=== PATIENT | female | born 1985 | race Two or more races ===

== ENCOUNTER 2018-11-26 00:45 | Inpatient (IN) | payer MEDICAID ==
[2018-11-26 01:21] LABS: APPEARANCE,URINE SLIGHTLY-CLOUDY; BILIRUBIN,URINE NEGATIVE (NEGATIVE); COLOR,URINE YELLOW; GLUCOSE, URINE NEGATIVE (NEGATIVE); KETONES,URINE NEGATIVE (NEGATIVE); LEUKOCYTE ESTERASE,URINE MODERATE (NEGATIVE); NITRITE,URINE NEGATIVE (NEGATIVE); PROTEIN,URINE NEGATIVE (NEGATIVE); UROBILINOGEN,URINE NEGATIVE mg/dL (<2.0)
[2018-11-26 02:02] LABS: URINE AMPHETAMINES SCREEN NEGATIVE; URINE BARBITURATES SCREEN NEGATIVE; URINE BENZODIAZEPINES SCREEN NEGATIVE; URINE COCAINE SCREEN NEGATIVE; URINE MARIJUANA (THC) SCREEN NEGATIVE; URINE METHADONE SCREEN NEGATIVE; URINE PHENCYCLIDINE SCREEN NEGATIVE
[2018-11-26] MEDS ORDERED: OXYTOCIN 10 UNIT/ML VIAL ONE (03:54)
[2018-11-26] MEDS ORDERED: LIDOCAINE 1% INJ-PF (10 MG/ML) 30 ML SDV ONE (03:54)
[2018-11-26] MEDS ORDERED: MISOPROSTOL 0.2 MG TABLET ONE (03:54)
[2018-11-26] MEDS ORDERED: PENICILLIN G-K 5 MILLION UNIT VIAL ONE ×2 (03:55→06:41)
[2018-11-26] MEDS ORDERED: OXYTOCIN/NORMAL SALINE 20 UNIT/1,000 ML RTUINJ ONE ×2 (03:55→13:54)
[2018-11-26] MEDS ORDERED: PENICILLIN G POTASSIUM 5,000,000 UNIT in DEXTROSE 5%-WATER 100 ML IV ONE (03:59)
[2018-11-26] MEDS ORDERED: RINGERS SOLUTION,LACTATED 1,000 ML IV PRN (03:59)
[2018-11-26 04:37] LABS: ABSOLUTE BASOPHILS # (AUTO) 0.1 10^3/uL (0.0-0.2); ABSOLUTE EOSINOPHILS # (AUTO) 0.2 10^3/uL (0.0-0.6); ABSOLUTE LYMPHOCYTES (AUTO) 1.8 10^3/uL (0.5-4.7); ABSOLUTE MONOCYTES (AUTO) 1.1 10^3/uL (0.1-1.4); BASOPHILS % (AUTO) 0.4 % (0-2); EOSINOPHILS % (AUTO) 1.5 % (0-6); HEMOGLOBIN 10.8 g/dL (12.0-15.5); LYMPHOCYTES % (AUTO) 14.8 % (13-45); MEAN CORPUSCULAR HEMOGLOBIN 30.1 pg (27.0-33.4); MEAN CORPUSCULAR VOLUME 86 fl (80-97); MONOCYTES % (AUTO) 9.3 % (3-13); PLATELET COUNT 159 10^3/uL (150-450); RED CELL DISTRIBUTION WIDTH 13.2 % (11.5-14.0); TOTAL CELLS COUNTED % (AUTO) 100 %; WHITE BLOOD COUNT 12.2 10^3/uL (4.0-10.5)
[2018-11-26] MEDS ORDERED: FENTANYL CITRATE INJ/PF 100 MCG/2 ML AMPUL ONE (05:07)
[2018-11-26] MEDS ORDERED: PHENYLEPHRINE HCL INJ/PF 10 MG/1 ML SDV ONE (05:07)
[2018-11-26] MEDS ORDERED: EPHEDRINE SULFATE INJ 50 MG/1 ML AMPULE ONE (05:07)
[2018-11-26] MEDS ORDERED: BUPIVACAINE HCL 0.25 % INJ/PF (2.5 MG/1 ML) 30 ML VIAL ONE (05:08)
[2018-11-26] MEDS ORDERED: FENTANYL/BUPIVACAINE/NS/PF 300 MCG/150 ML RTUINJ EPI ONE (05:08)
--- NOTE | 2018-11-26 07:46 | Warning Signs in Babies ---
VOD Warning Signs Datetime Report Generated by [facility]: 11/26/2018 07:45 VOD#608 -Warning Signs in Babies: Viewed with Parent(s)/Family (11/26/2018 07:44:Maldonado Portillo RN)
--- NOTE | 2018-11-26 07:54 | Admission Physical ---
Datetime Report Generated by CPN: 11/26/2018 07:54 CURRENT ADMISSION Chief Complaint: Uterine Contractions Indication for Induction: Not Applicable Admit Impression : Term, Intrauterine ; Active Labor Admit Plan: Admit to Unit; Initiate Labor Augmentation Protocol ALLERGIES Medication Allergies: No Medication Allergies: No Known Allergies (11/26/2018) Latex: No Latex Allergies Food Allergies: none Environmental Allergies: none OBSTETRICAL HISTORY EDC: 11/29/2018 00:00 : 5 Para: 2 Term: 2 : 0 SAB: 0 IAB: 0 Ectopic: 0 Livin Cesareans: 0 VBACs: 0 Multiple Births: 0 Gestational Diabetes: Yes Rh Sensitization: No Incompetent Cervix: No YOSI: No Infertility: No ART Treatment: No Uterine Anomaly: No IUGR: No Hx Previous C/S: No Macrosomia: No Hx Loss/Stillborn: No PIH: No Hx : No Placenta Previa/Abruption: No Depression/PP Depression: No PTL/PROM: No Post Hemorrhage: No Current Procedures: Ultrasound; NST Obstetrical History Comments: G1- 2009 6week SAB G2- 2011 4 week SAB G3- 2013 at 40 weeks 7lbs 5oz female G4- 2013 at 39 weeks 8lbs 14oz male, GDM G5- current, GDM (diet controlled) SEE RECORDS Alcohol: No Marijuana : No Cocaine: No Other Illicit Drugs: No Cigarettes: Current Everyday Smoker. [id number] Cigarette Frequency: < 5 per day Advised to Stop: Yes MEDICAL HISTORY Diabetes: Yes Diabetes Type: Gestational Diabetes Blood Transfusion: No Pulmonary Disease (Asthma, TB): No Breast Disease: No Hypertension: No Siene Maker Surgery: No Heart Disease: No Hosp/Surgery: No Autoimmune Disorder: No Anesthetic Complications: No Kidney Disease: Yes Abnormal Pap Smear: No Neuro/Epilepsy: No Psychiatric Disorders: No Other Medical Diseases: No Hepatitis/Liver Disease: No Significant Family History: No Varicosities/Phlebitis: No Trauma/Violence : No Thyroid Dysfunction: No Medical History Comments: pt has had 2 UTIs during this pregnancv INFECTIOUS HISTORY Gonorrhea: No Genital Herpes: No Chlamydia: No Tuberculosis: No Syphilis: No Hepatitis: No HIV/AIDS Exposure: No Rash or Viral Illness: No HPV: No PHYSICAL EXAM General: Normal HEENT: Normal Neurologic: Normal Thyroid: Normal Heart: Normal Lungs: Normal Breast: Normal Back: Normal Abdomen: Normal Genitourinary Exam: Normal Extremities: Normal DTRs: Normal Pelvic Type: Adequate Vital Signs: Reviewed VAGINAL EXAM Dilatation: 5 Effacement: 80 Station: -2 MEMBRANES Pooling: Negative Membranes: Intact FETUS A EGA: 39.4 Monitoring: External US FHR- Baseline: 130 Variability: Moderate 6-25bpm Accelerations: 15X15 Decelerations: None FHR Category: Category I Estimated Weight (gm): 3400 Presentation: Vertex PLANS FOR LABOR AND DELIVERY Labor and Delivery: None Pain Management: Natural Feeding Preference: Breast Benefit of Breast Feed Discussed: Yes Circumcision: N/A INFORMED CONSENT Signature: with User ID: [email or web address]
[2018-11-26] MEDS: PENICILLIN G POTASSIUM 2,500,000 UNIT in DEXTROSE 5%-WATER 50 ML IV SCH ×3 (08:03→16:18)
[2018-11-26] MEDS ORDERED: PROMETHAZINE HCL INJ 25 MG/1 ML VIAL IV PRN (10:31)
[2018-11-26] MEDS ORDERED: PSEUDOEPHEDRINE HCL 30 MG TABLET PO PRN (10:31)
[2018-11-26] MEDS ORDERED: DIPH/PERTUSS(ACELL)/TETANUS VAC/PF 0.5 ML SYR (>=10YO) IM PRN (10:31)
[2018-11-26] MEDS ORDERED: PROMETHAZINE HCL 25 MG SUPP.RECT PR PRN (10:31)
[2018-11-26] MEDS ORDERED: DIBUCAINE 1% OINTMENT 56 GM TP PRN (10:31)
[2018-11-26] MEDS ORDERED: BENZOCAINE/MENTHOL AEROSOL SPRAY 56 ML TOP PRN (10:31)
[2018-11-26] MEDS ORDERED: MISOPROSTOL 0.2 MG TABLET PR ONE (10:31)
[2018-11-26] MEDS ORDERED: DIPHENHYDRAMINE HCL 25 MG CAPSULE PO PRN (10:31)
[2018-11-26] MEDS ORDERED: OXYTOCIN/NORMAL SALINE 20 UNIT/1,000 ML RTUINJ IV PRN (10:31)
[2018-11-26] MEDS ORDERED: ACETAMINOPHEN 325 MG TABLET PO PRN (10:31)
[2018-11-26] MEDS ORDERED: MAGNESIUM HYDROXIDE SUSP 30 ML UDCUP PO PRN (10:31)
[2018-11-26] MEDS ORDERED: MEASLES,MUMPS&RUBELLA VACC/PF 0.5 ML VIAL SUBCUT PRN (10:31)
[2018-11-26] MEDS ORDERED: GLYCERIN/WITCH HAZEL LEAF 1 EACH MED..WIPE TP PRN (10:31)
[2018-11-26] MEDS ORDERED: PROMETHAZINE HCL 25 MG TABLET PO PRN (10:31)
[2018-11-26] MEDS ORDERED: NA PHOS,M-B/NA PHOS,DI-BA (ADULT) 133 ML ENEMA PR PRN (10:31)
[2018-11-26] MEDS ORDERED: MORPHINE SULFATE 10 MG/ML INJ ONE (15:42)
[2018-11-26] MEDS ORDERED: METHYLERGONOVINE MALEATE 0.2 MG TABLET ONE ×2 (15:51→21:26)
[2018-11-26] MEDS: METHYLERGONOVINE MALEATE 0.2 MG TABLET PO SCH ×3 (16:01→23:45)
[2018-11-26] MEDS: FERROUS SULFATE 325 MG TABLET PO SCH (17:51)
[2018-11-26] MEDS: IBUPROFEN 800 MG TABLET PO SCH (17:51)
[2018-11-26] MEDS: DOCUSATE SODIUM 100 MG CAPSULE PO SCH (17:51)
[2018-11-26] MEDS: FAMOTIDINE 20 MG TABLET PO SCH (21:30)
[2018-11-27] MEDS: IBUPROFEN 800 MG TABLET PO SCH ×3 (01:59→18:12)
[2018-11-27] MEDS: METHYLERGONOVINE MALEATE 0.2 MG TABLET PO SCH ×3 (04:40→18:58)
[2018-11-27 06:58] LABS: HEMATOCRIT 26.5 % (36.0-47.0); HEMOGLOBIN 9.2 g/dL (12.0-15.5); MEAN CORPUSCULAR HEMOGLOBIN 30.2 pg (27.0-33.4); MEAN CORPUSCULAR HGB CONC 34.9 g/dL (32.0-36.0); MEAN CORPUSCULAR VOLUME 87 fl (80-97); PLATELET COUNT 137 10^3/uL (150-450); RED BLOOD COUNT 3.06 10^6/uL (3.72-5.28); RED CELL DISTRIBUTION WIDTH 13.5 % (11.5-14.0); WHITE BLOOD COUNT 11.2 10^3/uL (4.0-10.5)
[2018-11-27] MEDS ORDERED: METHYLERGONOVINE MALEATE 0.2 MG TABLET ONE (08:15)
[2018-11-27] MEDS: DOCUSATE SODIUM 100 MG CAPSULE PO SCH ×2 (09:25→18:12)
[2018-11-27] MEDS: SENNOSIDES/DOCUSATE 8.6-50 MG 1 EACH TABLET PO SCH (09:25)
[2018-11-27] MEDS: FERROUS SULFATE 325 MG TABLET PO SCH ×2 (09:25→18:12)
[2018-11-27] MEDS: FAMOTIDINE 20 MG TABLET PO SCH ×2 (09:25→22:23)
[2018-11-27] MEDS: PRENATAL VITAMIN W DHA CAPSULE PO SCH (09:25)
--- NOTE | 2018-11-27 11:05 | PDOC PROGRESS REPORT ---
Subjective-OB Progress Note for:: 11/27/18 Subjective: Doing well, no c/o, holding baby and on phone, Physical Exam (OB) Vital Signs: Temp Pulse Resp BP Pulse Ox 97.6 F 78 18 111/69 98 11/27/18 07:54 11/27/18 07:54 11/27/18 07:54 11/27/18 07:54 11/27/18 07:54 Intake & Output 11/26/18 11/27/18 11/28/18 06:59 06:59 06:59 Intake Total 240 Balance 240 Weight 67 kg - Lochia Lochia Amount: Scant < 10 ml Lochia Color: Rubra/Red - Abdomen Description: Firm, Round Hernia Present: No Fundal Description: Firm, Midline Fundal Height: u/u - u/2 Objective-Diagnostic Laboratory: 11/27/18 06:06 11/27/18 06:06 WBC 11.2 H RBC 3.06 L Hgb 9.2 L Hct 26.5 L MCV 87 MCH 30.2 MCHC 34.9 RDW 13.5 Plt Count 137 L Assessment and Plan(PN) - Assessment and Plan (1) hemorrhage Qualifiers: hemorrhage type: unspecified Qualified Code(s): O72.1 - Other immediate hemorrhage Is this a current diagnosis for this admission?: Yes (2) Anemia complicating , third trimester Is this a current diagnosis for this admission?: Yes (3) Delivery normal Is this a current diagnosis for this admission?: Yes - Time Spent with Patient Time with patient: Less than 15 minutes Medications reviewed and adjusted accordingly: Yes - Disposition Anticipated Discharge: Home Within: within 24 hours
[2018-11-28] MEDS: IBUPROFEN 800 MG TABLET PO SCH ×2 (01:21→10:14)
[2018-11-28] MEDS: PRENATAL VITAMIN W DHA CAPSULE PO SCH (10:13)
[2018-11-28] MEDS: DOCUSATE SODIUM 100 MG CAPSULE PO SCH (10:14)
[2018-11-28] MEDS: SENNOSIDES/DOCUSATE 8.6-50 MG 1 EACH TABLET PO SCH (10:14)
[2018-11-28] MEDS: FAMOTIDINE 20 MG TABLET PO SCH (10:14)
[2018-11-28] MEDS: FERROUS SULFATE 325 MG TABLET PO SCH (10:14)
--- NOTE | 2018-11-28 10:39 | PDOC DISCHARGE SUMMARY ---
Impression - Admit/DC Date/PCP Admission Date/Primary Care Provider: 11/26/18 03:52 Discharge Date: 11/28/18 - PP Day #2, doing well, non complaints, , O+, rubella Immune - Discharge Diagnosis (1) Anemia complicating , third trimester Is this a current diagnosis for this admission?: Yes (2) Delivery normal Is this a current diagnosis for this admission?: Yes (3) hemorrhage Is this a current diagnosis for this admission?: Yes - Additional Information Resuscitation Status: Full Code Discharge Diet: As Tolerated, Regular Discharge Activity: Activity As Tolerated, No Lifting Over 10 Pounds, Pelvic R est Home Medications: No Home Medications 11/26/18 HPI Reason(s) for Admission: Onset of Labor Procedures: Ultrasound Intrapartum Procedure(s): Spontaneous Vaginal Delivery Hospital Course Hospital Course: Hx of GDM this Results Laboratory Results: WBC 11.2 10^3/uL (4.0-10.5) H 11/27/18 06:06 RBC 3.06 10^6/uL (3.72-5.28) L 11/27/18 06:06 Hgb 9.2 g/dL (12.0-15.5) L 11/27/18 06:06 Hct 26.5 % (36.0-47.0) L 11/27/18 06:06 MCV 87 fl (80-97) 11/27/18 06:06 MCH 30.2 pg (27.0-33.4) 11/27/18 06:06 MCHC 34.9 g/dL (32.0-36.0) 11/27/18 06:06 RDW 13.5 % (11.5-14.0) 11/27/18 06:06 Plt Count 137 10^3/uL (150-450) L 11/27/18 06:06 Lymph % (Auto) 14.8 % (13-45) 11/26/18 04:25 [place] % (Auto) 9.3 % (3-13) 11/26/18 04:25 Eos % (Auto) 1.5 % (0-6) 11/26/18 04:25 Baso % (Auto) 0.4 % (0-2) 11/26/18 04:25 Absolute Neuts (auto) 9.0 10^3/uL (1.7-8.2) H 11/26/18 04:25 Absolute Lymphs (auto) 1.8 10^3/uL (0.5-4.7) 11/26/18 04:25 Absolute Monos (auto) 1.1 10^3/uL (0.1-1.4) 11/26/18 04:25 Absolute Eos (auto) 0.2 10^3/uL (0.0-0.6) 11/26/18 04:25 Absolute Basos (auto) 0.1 10^3/uL (0.0-0.2) 11/26/18 04:25 Seg Neutrophils % 74.0 % (42-78) 11/26/18 04:25 Urine Color YELLOW 11/26/18 00:55 Urine Appearance SLIGHTLY-CLOUDY 11/26/18 00:55 Urine pH 6.0 (5.0-9.0) 11/26/18 00:55 Ur Specific [place] 1.010 11/26/18 00:55 Urine Protein NEGATIVE mg/dL (NEGATIVE) 11/26/18 00:55 Urine Glucose (UA) NEGATIVE mg/dL (NEGATIVE) 11/26/18 00:55 Urine Ketones NEGATIVE mg/dL (NEGATIVE) 11/26/18 00:55 Urine Blood SMALL (NEGATIVE) H 11/26/18 00:55 Urine Nitrite NEGATIVE (NEGATIVE) 11/26/18 00:55 Urine Bilirubin NEGATIVE (NEGATIVE) 11/26/18 00:55 Urine Urobilinogen NEGATIVE mg/dL (<2.0) 11/26/18 00:55 Ur Leukocyte Esterase MODERATE (NEGATIVE) H 11/26/18 00:55 Urine Ascorbic Acid NEGATIVE (NEGATIVE) 11/26/18 00:55 Membranes Rupture NEGATIVE (NEGATIVE) 11/26/18 01:02 Urine Opiates Screen NEGATIVE 11/26/18 00:55 Urine Methadone Screen NEGATIVE 11/26/18 00:55 Ur Barbiturates Screen NEGATIVE 11/26/18 00:55 Ur Phencyclidine Scrn NEGATIVE 11/26/18 00:55 Ur Amphetamines Screen NEGATIVE 11/26/18 00:55 U Benzodiazepines Scrn NEGATIVE 11/26/18 00:55 Urine Cocaine Screen NEGATIVE 11/26/18 00:55 U Marijuana (THC) Screen NEGATIVE 11/26/18 00:55 RPR NONREACTIVE (NONREACTIVE) 11/26/18 04:25 Blood Type O POSITIVE 11/26/18 04:25 Antibody Screen NEGATIVE 11/26/18 04:25 Plan Health Concerns: none
[2018-11-28 11:04] VITALS: BP 111/69
--- NOTE | 2018-12-03 07:54 | Delivery Summary ---
Del Sum A-C Datetime Report Generated by CPN: 12/03/2018 07:53 DELIVERY PERSONNEL DELIVERY PERSONNEL: [id number] Delivery Doctor:: Isa Ennis CNM Labor and Delivery Nurse:: Maldonado Portillo RNhotel or motel room service supervisor Nurse:: Marissa Mendez RN Load Haul Dump Operator/FINANCIAL SALES ASSOCIATE: Lillie Pozo CST Additional Personnel: : Soumya Balderas RN MATERNAL INFORMATION Delivery Anesthesia: Epidural Medications After Delivery: Pitocin Bolus-Please Comment; Pitocin Drip 20 Units/1000ml NSS; Cytotec 1000mcg Per Rectum/Vagina Delivery QBL: 300 Delivery QBL Comment: 300ml Maternal Complications: None Provider Comments: pt progressed to c/c/2 with urge to push. Called into room, pt began pushing and quickly delivered a viable baby girl with vigorous respiratory effort and cry with tactile stimulation. Baby placed on maternal abdomen, cord allowed to stop pulsating then clamped x2 and cut by FOB (3vc noted, cord blood collected, terminal meconium noted). Placenta delivered spontaneously intact with trailing membranes. fundus firm at U-1 with moderate bleeding and several clots out. Vaginal sweep performed and minimal bleeding followed. Vaginal and perineal inspection revealed no lacerations. Mother and baby remain skin to skin and bonding at this time. 1000mcg cytotec placed rectally for prophylaxis LABOR SUMMARY EDC: 11/29/2018 00:00 No. Babies in Womb: 1 Attempted: No Labor Anesthesia: Epidural LABOR INFORMATION Reason for Induction: Not Applicable Complete Dilatation: 11/26/2018 09:54 Other Ripening Agents: 125 ml/hr Oxytocin: Augmentation Group B Beta Strep: positive Antibiotics # of Doses: 2 Antibiotics Time of Last Dose: 0803 Name of Antibiotic Given: PENICILLIN G Steroids Given: None Reason Steroids Not Administered: Not Applicable MEMBRANES Membranes Rupture Method: Spontaneous Rupture of Membranes: 11/26/2018 07:48 Length of Rupture (hr): 2.27 Amniotic Fluid Color: Clear Amniotic Fluid Amount: Small Amniotic Fluid Odor: None STAGES OF LABOR Stage 2 hr: 0 Stage 2 min: 10 Stage 3 hr: 0 Stage 3 min: 7 VAGINAL DELIVERY Episiotomy: None Laceration #1: None Laceration Extension #1: N/A Other Laceration: n/a Laceration Repair: Not Applicable Sponge Count Correct: N/A; Vaginal Sweep Performed Sharps Count Correct: N/A BABY A INFORMATION Delivery Date/Time: 11/26/2018 10:04 Method of Delivery: Vaginal Born in Route : No : N/A Forceps: N/A Vacuum Extraction: N/A Shoulder Dystocia : No PRESENTATION/POSITION BABY A Presentation: Cephalic Cephalic Presentation: Vertex Vertex Position: Left Occipital Anterior Breech Presentation: N/A PLACENTA INFORMATION BABY A Placenta Delivery Time : 11/26/2018 10:11 Placenta Method of Delivery: Spontaneous Placenta Status: Delivered SCORES BABY A Heart Rate 1 min: >100 bpm Resp Effort 1 min: Slow, Irregular Reflex Irritability 1 min: Cough or Sneeze or Pulls Away Muscle Tone 1 min: Active Motion Color 1 min: Body [place], Extremities Blue Resuscitation Effort 1 min: Tactile Stimulation SCORE 1 MIN: 8 Heart Rate 5 min: >100 bpm Resp Effort 5 min: Good Cry Reflex Irritability 5 min: Cough or Sneeze or Pulls Away Muscle Tone 5 min: Active Motion Color 5 min: Body [place], Extremities Blue Resuscitation Effort 5 min: Tactile Stimulation SCORE 5 MIN: 9 INFANT INFORMATION BABY A Gestational Age at Delivery: 39.4 Gestational Status: Full Term- 39- 40.6 Weeks Infant Outcome : Liveborn Infant Condition : Stable Infant Sex: Female IDENTIFICATION BABY A Infant Verification Date/Time: 11/26/2018 10:51 ID Band Number: [id number] Mother's Name Verified: Yes Infant RN Verifying : JNiebuhr,RN Additional Verifying Personnel: Adeel,MARY WEIGHT/LENGTH BABY A Birthweight (gm): 4039 Infant Weight (lb): 8 Weight (oz): 14 Length (in): 21.00 Length (cm): 53.34 CORD INFORMATION BABY A Nuchal Cord : N/A Cord Blood Taken: Yes-For Eval (Mom's Blood Type - or O+) Infant Suction: None ASSESSMENT BABY A Complications: None Physical Findings at Delivery: Within Normal Limits Respirations: Appears Normal Skin to Skin: Yes Skin to Skin Time (min): 60 Dispensary Clerk/ALS Called : No Infant Care By: Erum PORTILLO RN Transferred To: Remains with Mother BABY B INFORMATION : N/A SIGNATURES Assignment: Ketty Alfred MD Signature: with User ID: [email or web address] : with User ID: [email or web address]
--- NOTE | 2018-12-03 07:54 | Delivery Summary ---
Del Sum A-C Datetime Report Generated by CPN: 12/03/2018 07:53 DELIVERY PERSONNEL DELIVERY PERSONNEL: [id number] Delivery Doctor:: Isa Ennis CNM Labor and Delivery Nurse:: Maldonado Portillo RNturf keeper Nurse:: Marissa Mendez RN District Manager Primary Care Sales/BUSINESS PLANNING ANALYST: Lillie Pozo CST Additional Personnel: : Soumya Balderas RN MATERNAL INFORMATION Delivery Anesthesia: Epidural Medications After Delivery: Pitocin Bolus-Please Comment; Pitocin Drip 20 Units/1000ml NSS; Cytotec 1000mcg Per Rectum/Vagina Delivery QBL: 300 Delivery QBL Comment: 300ml Maternal Complications: None Provider Comments: pt progressed to c/c/2 with urge to push. Called into room, pt began pushing and quickly delivered a viable baby girl with vigorous respiratory effort and cry with tactile stimulation. Baby placed on maternal abdomen, cord allowed to stop pulsating then clamped x2 and cut by FOB (3vc noted, cord blood collected, terminal meconium noted). Placenta delivered spontaneously intact with trailing membranes. fundus firm at U-1 with moderate bleeding and several clots out. Vaginal sweep performed and minimal bleeding followed. Vaginal and perineal inspection revealed no lacerations. Mother and baby remain skin to skin and bonding at this time. 1000mcg cytotec placed rectally for prophylaxis LABOR SUMMARY EDC: 11/29/2018 00:00 No. Babies in Womb: 1 Attempted: No Labor Anesthesia: Epidural LABOR INFORMATION Reason for Induction: Not Applicable Complete Dilatation: 11/26/2018 09:54 Other Ripening Agents: 125 ml/hr Oxytocin: Augmentation Group B Beta Strep: positive Antibiotics # of Doses: 2 Antibiotics Time of Last Dose: 0803 Name of Antibiotic Given: PENICILLIN G Steroids Given: None Reason Steroids Not Administered: Not Applicable MEMBRANES Membranes Rupture Method: Spontaneous Rupture of Membranes: 11/26/2018 07:48 Length of Rupture (hr): 2.27 Amniotic Fluid Color: Clear Amniotic Fluid Amount: Small Amniotic Fluid Odor: None STAGES OF LABOR Stage 2 hr: 0 Stage 2 min: 10 Stage 3 hr: 0 Stage 3 min: 7 VAGINAL DELIVERY Episiotomy: None Laceration #1: None Laceration Extension #1: N/A Other Laceration: n/a Laceration Repair: Not Applicable Sponge Count Correct: N/A; Vaginal Sweep Performed Sharps Count Correct: N/A BABY A INFORMATION Delivery Date/Time: 11/26/2018 10:04 Method of Delivery: Vaginal Born in Route : No : N/A Forceps: N/A Vacuum Extraction: N/A Shoulder Dystocia : No PRESENTATION/POSITION BABY A Presentation: Cephalic Cephalic Presentation: Vertex Vertex Position: Left Occipital Anterior Breech Presentation: N/A PLACENTA INFORMATION BABY A Placenta Delivery Time : 11/26/2018 10:11 Placenta Method of Delivery: Spontaneous Placenta Status: Delivered SCORES BABY A Heart Rate 1 min: >100 bpm Resp Effort 1 min: Slow, Irregular Reflex Irritability 1 min: Cough or Sneeze or Pulls Away Muscle Tone 1 min: Active Motion Color 1 min: Body [place], Extremities Blue Resuscitation Effort 1 min: Tactile Stimulation SCORE 1 MIN: 8 Heart Rate 5 min: >100 bpm Resp Effort 5 min: Good Cry Reflex Irritability 5 min: Cough or Sneeze or Pulls Away Muscle Tone 5 min: Active Motion Color 5 min: Body [place], Extremities Blue Resuscitation Effort 5 min: Tactile Stimulation SCORE 5 MIN: 9 INFANT INFORMATION BABY A Gestational Age at Delivery: 39.4 Gestational Status: Full Term- 39- 40.6 Weeks Infant Outcome : Liveborn Infant Condition : Stable Infant Sex: Female IDENTIFICATION BABY A Infant Verification Date/Time: 11/26/2018 10:51 ID Band Number: [id number] Mother's Name Verified: Yes Infant RN Verifying : JNiebuhr,RN Additional Verifying Personnel: Adeel,MARY WEIGHT/LENGTH BABY A Birthweight (gm): 4039 Infant Weight (lb): 8 Weight (oz): 14 Length (in): 21.00 Length (cm): 53.34 CORD INFORMATION BABY A Nuchal Cord : N/A Cord Blood Taken: Yes-For Eval (Mom's Blood Type - or O+) Infant Suction: None ASSESSMENT BABY A Complications: None Physical Findings at Delivery: Within Normal Limits Respirations: Appears Normal Skin to Skin: Yes Skin to Skin Time (min): 60 Configuration Manager/ALS Called : No Infant Care By: Erum PORTILLO RN Transferred To: Remains with Mother BABY B INFORMATION : N/A SIGNATURES Assignment: Ketty Alfred MD Signature: with User ID: [email or web address] : with User ID: [email or web address]
== END 2018-11-28 13:41 | disposition home or self-care (01) | DRG 807 ==
LOC: LC 00:45 → LR 03:52 → 2N 17:43
PROVIDERS: ADMIT Obstetrics & Gynecology; ATTEND Obstetrics & Gynecology
PROC: 10E0XZZ Delivery of Products of Conception, External Approach (ICD-10-PCS; principal; 2018-11-26)
PROC: 3E0234Z Introduction of Serum, Toxoid and Vaccine into Muscle, Percutaneous Approach (ICD-10-PCS; 2018-11-28)
DX: O99.824 Streptococcus B carrier state complicating childbirth (principal); Z37.0 Single live birth; O24.420 Gestational diabetes mellitus in childbirth, diet controlled; O72.1 Other immediate postpartum hemorrhage; O99.02 Anemia complicating childbirth; D64.9 Anemia, unspecified; O99.334 Smoking (tobacco) complicating childbirth; F17.210 Nicotine dependence, cigarettes, uncomplicated; Z23 Encounter for immunization; Z3A.39 39 weeks gestation of pregnancy
CPT/HCPCS: 36415; 80307; 81005; 84112; 85025; 85027; 86592; 86850; 86900; 86901; 90715; J2270; J2370; J2540; J2590; J3010; J3490; J7060

== ENCOUNTER 2019-06-13 11:30 | Emergency (ER) | payer SELFPAY ==
--- NOTE | 2019-06-13 11:48 | ER Document Report ---
ED GI/ - General Chief Complaint: Abdominal Pain Stated Complaint: RIGHT SIDE PAIN Time Seen by Provider: 06/13/19 11:43 Mode of Arrival: Ambulatory Information source: Patient Notes: 34-year-old female presented to ED for complaint of right flank/upper abdominal pain. [place] around and she fell a few times. She states that her right flank was hurting then and she thought it was getting better then this morning she woke up and could not get up and move around. She states her last menstrual period was from the . She states she does smoke 4 to 5 cigarettes a day drinks about once a month no drugs. 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 She states she does not have any past medical or surgical history and her last tetanus immunization was about 2014. TRAVEL OUTSIDE OF THE [place] IN LAST 30 DAYS: No - HPI Patient complains to provider of: Abdominal pain - Right upper, Flank pain - Right Onset: Other - 5 days Timing/Duration: Intermittent, Worse Quality of pain: Sharp Severity at maximum: Severe Severity in ED: Severe Pain Level: 5 Location: RUQ, Right flank Vaginal bleeding (Compared to normal period): None LMP: June 01 Exacerbated by: Movement, Walking, Deep breathing Relieved by: Denies Similar symptoms previously: Yes Recently seen / treated by doctor: No - Related Data Allergies/Adverse Reactions: No Known Allergies Allergy (Verified 11/26/18 04:30) Past Medical History - General Information source: Patient - Social History Smoking Status: Current Every Day Smoker Cigarette use (# per day): Yes - 4-5 cigarettes a day Smoking Education Provided: Yes - 4 minutes Frequency of alcohol use: Occasional Drug Abuse: None Occupation: [employer] Lives with: Spouse/Significant other Family History: Reviewed & Not Pertinent Patient has suicidal ideation: No Patient has homicidal ideation: No - Medical History Medical History: Negative - Past Medical History Cardiac Medical History: Reports: None Pulmonary Medical History: Reports: None EENT Medical History: Reports: None Neurological Medical History: Reports: None Endocrine Medical History: Reports: None Renal/ Medical History: Reports: None Malignancy Medical History: Reports: None GI Medical History: Reports: None Musculoskeletal Medical History: Reports None Skin Medical History: Reports None Psychiatric Medical History: Reports: None Traumatic Medical History: Reports: None Infectious Medical History: Reports: None Surgical Hx: Negative Past Surgical History: Reports: None - Immunizations Immunizations up to date: Yes Hx Diphtheria, Pertussis, Tetanus Vaccination: Yes - 2014 Review of Systems - Review of Systems Constitutional: No symptoms reported EENT: No symptoms reported Cardiovascular: No symptoms reported Respiratory: No symptoms reported Gastrointestinal: Abdominal pain Genitourinary: Flank pain - Right flank Female Genitourinary: No symptoms reported Musculoskeletal: No symptoms reported Skin: No symptoms reported Hematologic/Lymphatic: No symptoms reported Neurological/Psychological: No symptoms reported Physical Exam - Vital signs Vitals: Temp Pulse Resp BP Pulse Ox 97.5 F 76 18 132/57 H 99 06/13/19 11:32 06/13/19 11:32 06/13/19 11:32 06/13/19 11:32 06/13/19 11:32 Interpretation: Normal - General General appearance: Appears well, Alert - HEENT Head: Normocephalic, Atraumatic Eyes: Normal Pupils: PERRL - Respiratory Respiratory status: No respiratory distress Chest status: Nontender Breath sounds: Normal Chest palpation: Normal - Cardiovascular Rhythm: Regular Heart sounds: Normal auscultation Murmur: No - Abdominal Inspection: Normal Distension: No distension Bowel sounds: Normal Tenderness: Tender - Right upper quadrant Organomegaly: No organomegaly - Back Back: Normal, CVA tenderness - Right flank - Extremities General upper extremity: Normal inspection, Nontender, Normal color, Normal ROM, Normal temperature General lower extremity: Normal inspection, Nontender, Normal color, Normal ROM, Normal temperature, Normal weight bearing. No: Surendra's sign - Neurological Neuro grossly intact: Yes Cognition: Normal Orientation: AAOx4 [place] Coma Scale Eye Opening: Spontaneous [place] Coma Scale Verbal: Oriented [place] Coma Scale Motor: Obeys Commands [place] Coma Scale Total: 15 Speech: Normal Motor strength normal: LUE, RUE, LLE, RLE Sensory: Normal - Psychological Associated symptoms: Normal affect, Normal mood - Skin Skin Temperature: Warm Skin Moisture: Dry Skin Color: Normal Course - Re-evaluation Re-evalutation: 06/13/19 18:09 Discussed ultrasound and CAT scan with patient. There is no acute processes on the ultrasound or the CAT scan. She did have a UTI. I did discuss all lab work with her and gave her written report of the CT ultrasound and lab work. She was treated with Rocephin in the emergency room for her UTI and discharged home with a prescription for Keflex. She has been informed that the urine will be sent for culture if anything grows that is not covered by the Keflex she will be called in a prescription called to her pharmacy of choice. Patient verbalized understanding and agreement treatment plan. Patient was given a prescription for muscle relaxants Flexeril as she stated she had fallen several days ago before this pain started. - Vital Signs Vital signs: Temp Pulse Resp BP Pulse Ox 97.8 F 70 20 116/70 100 06/13/19 15:49 06/13/19 15:49 06/13/19 15:49 06/13/19 15:49 06/13/19 15:49 - Laboratory Result Diagrams: 06/13/19 12:00 06/13/19 12:00 Laboratory results interpreted by me: 06/13/19 06/13/19 12:00 13:27 Hct 35.9 L Urine Blood MODERATE H Urine Nitrite (Reflex) POSITIVE H Leukocyte Esterase Rfl TRACE H - Diagnostic Test Radiology reviewed: Image reviewed, Reports reviewed Discharge - Discharge Clinical Impression: Right flank pain UTI (urinary tract infection) Qualifiers: Urinary tract infection type: site unspecified Hematuria presence: with adrianne turia Qualified Code(s): N39.0 - Urinary tract infection, site not specified Fall Qualifiers: Encounter type: initial encounter Qualified Code(s): W19.XXXA - Unspecified fall, initial encounter Condition: Stable Disposition: HOME, SELF-CARE Additional Instructions: CONTUSION: Your injury has resulted in a contusion -- a crushing of the deep tissues. No injury to important structures was detected during the physician's exam. Contusions vary in the amount of pain they cause, and in the length of time required for healing. Typically, the area will become bruised, and will remain painful to touch for two or three weeks. However, most patients are back to working and playing within a few days. After the initial period of rest and cold-packs, your symptoms (together with the doctor's recommendations) will determine how rapidly you can get back to full activity. Usually this means "do what feels okay, but don't do things that hurt." If re-examination was recommended, it's important to follow up as instructed. Call the doctor or return any time if pain increases, if swelling becomes severe, if you develop numbness or weakness in an injured extremity, or if any other alarming symptoms occur. Flank Pain We weren't able to prove an exact cause for your flank pain. Pain in the flank can be caused by a muscle strain or spasm. Sometimes a kidney stone causes pain, but can't be found on our tests. Infection in the kidney should be evident on a urine test. Early shingles can occasionally cause flank pain, without the rash that proves the diagnosis. On rare occasions, disease of the pancreas, aorta, spleen, or colon can create pain in the flank. At this time, there's no evidence of a dangerous condition, and it seems safe for you to be at home. If the pain goes away and does not come back, no further testing will be needed. If pain persists, or becomes more severe, we may need to repeat some tests or order additional new testing. Blood in the urine, urgency to urinate frequently, and pain that radiates to the groin can indicate a kidney stone. Fever may mean that the pain is due to infection, either of the kidney or the colon (diverticulitis). If your pain is early shingles, you should develop an eruption of blisters in the painful area within a few days. Call the doctor or return if you have pain that is spreading or becoming more severe, pain that does not resolve with time, fever, or any other new symptoms. URINARY TRACT INFECTION: Your evaluation indicates that you have a urinary tract infection. This is due to germs growing in the bladder. This is a common problem. This infection usually responds quickly to antibiotics. Your antibiotic should be taken exactly as prescribed. Drink plenty of fluids -- three to four quarts a day. Occasionally, a bladder anesthetic will be prescribed to help stop the feeling of urgency until the antibiotic has a chance to clear the infection. This may cause your urine to be dark orange. Certain urine infections require a culture. If the doctor obtained a cu lture, the results will be back in two days. You should call to see if a change in treatment is needed. A repeat urinalysis after you finish treatment is often recommended. The physician will let you know if further testing is required. Call the doctor if you develop fever, chills, flank pain, inability to urinate, or blood in the urine. CEPHALEXIN: The antibiotic you've been prescribed is a member of the cephalosporin class. This type of antibiotic covers a wide variety of infections, including those of the skin, lungs, and urinary tract. It's useful for staph infections. This antibiotic is slightly similar to the penicillin family. In rare cases, a person who is allergic to penicillin will also be allergic to this medication. If you have had a severe allergic reaction to penicillin, and have not taken this antibiotic since that time, notify your doctor. Antibiotics which cover many germs ("broad spectrum" antibiotics) are more likely to cause diarrhea or "yeast" infections. Women prone to vaginal yeast problems may suffer an attack after taking this antibiotic. In infants, oral thrush (white spots "stuck" on the cheek) or yeast diaper rash may result. See your doctor if these problems occur. Call at once if you develop itching, hives, shortness of breath, or lightheadedness. Rocephin You have been given an injection of an antibiotic called Rocephin (ceftriaxone). Sometimes the injection must be combined with antibiotic pills. For some infections, such as an uncomplicated ear infection, Rocephin provides all the antibiotic that's needed. The antibiotic will be in your body for about two days. For serious infec tions, we usually repeat doses of Rocephin daily. Side effects are very unusual following a shot. Women may develop vaginal yeast infections, and babies can get yeast (thrush) in the mouth following the use of antibiotics. Contact your physician if you have symptoms with this medication. Allergy to this antibiotic can result in hives, wheezing, faintness, or itching. If symptoms of allergy occur, call the doctor at once. Pain Medication Injection You have received an injection of a pain medication. You should experience significant pain relief within 45 minutes. This drug is a narcotic -- it will impair your judgement, slow your reaction time and make you sleepy (as well as relieve your pain). Narcotics also can cause nausea. You should not drive, work with machinery, or perform any task requiring mental alertness until all effects of the medication are gone -- six to eight hours. Do not take any alcohol, or sedatives, and do not take any other medication without checking with your physician. Antinausea Medication You have been given a medication to suppress nausea and vomiting. This type of medication can be given as a shot, pill, or suppository. It will usually last for many hours. Pills and shots usually last six to eight hours, suppositories last about 12 hours. For the typical illness, only one or two doses of the medication may be necessary. Mild lightheadedness may occur. This type of medicine can cause drowsiness. Do not drive or operate dangerous machinery while under its in fluence. Do not mix with alcohol. See your doctor at once if you have muscle spasms or tightness, or uncontrollable motions (particularly of the neck, mouth, or jaw). Persistent vomiting or severe lightheadedness should also be evaluated by the physician. ICE PACKS: Apply ice packs frequently against the painful area. Many different schedules are recommended, such as "20 minutes on, 20 minutes off" or "one hour ice, two hours rest." If you need to work, you may need to go longer between ice treatments. You should plan to have the area ice packed AT LEAST one fourth of the time. The ice should be applied over the wrap, tape, or splint, or over a layer of cloth -- not directly against the skin. Some ice bags have a built-in cloth and can be put directly on the skin. WARM PACKS: After approximately two days, apply gentle heat (such as a heating pad or h ot water bottle) for about 20 to 30 minutes about every two hours -- at least four times daily. Warmth and elevation will help you make a more rapid recovery, and will ease the pain considerably. Do not use HOT heat, and never apply heat for longer than 30 minutes. The continuous heat can invisibly damage skin and muscles -- even when no burn is seen on the surface. Damaged muscles can make you MORE sore. MUSCLE RELAXERS: Muscle relaxing medications are usually prescribed for acute muscle spasm or injury to the neck and back. They are often combined with antiinflammatory pain medication for increased relief. You may stop the muscle relaxer when the pain and stiffness have improved. Start the medication again if spasms recur. Muscle relaxers may cause drowsiness, especially with the first dose. Do not operate machinery or drive while under the effects of the medication. Most muscle relaxers last up to 24 hours. Do not combine the medication with alcohol. FOLLOW-UP CARE: If you have been referred to a physician for follow-up care, call the physicians office for an appointment as you were instructed or within the next two days. If you experience worsening or a significant change in your symptoms, notify the physician immediately or return to the Emergency Department at any time for re-evaluation. Prescriptions: Cyclobenzaprine HCl [Flexeril 10 mg Tablet] 10 mg PO TIDP PRN #15 tab PRN Reason: For Pain Scale 3-5 Cephalexin Monohydrate [Keflex 500 mg Capsule] 500 mg PO Q6H 5 Days #20 capsule Forms: Elevated Blood Pressure, Smoking Cessation Education, Return to Work
[2019-06-13 12:24] LABS: ABSOLUTE EOSINOPHILS # (AUTO) 0.1 10^3/uL (0.0-0.6); ABSOLUTE LYMPHOCYTES (AUTO) 1.1 10^3/uL (0.5-4.7); ABSOLUTE MONOCYTES (AUTO) 0.5 10^3/uL (0.1-1.4); ABSOLUTE NEUT (AUTO) 3.9 10^3/uL (1.7-8.2); BASOPHILS % (AUTO) 0.7 % (0-2); EOSINOPHILS % (AUTO) 2.5 % (0-6); HEMATOCRIT 35.9 % (36.0-47.0); HEMOGLOBIN 12.2 g/dL (12.0-15.5); MEAN CORPUSCULAR HEMOGLOBIN 28.3 pg (27.0-33.4); MEAN CORPUSCULAR VOLUME 83 fl (80-97); MONOCYTES % (AUTO) 8.7 % (3-13); PLATELET COUNT 209 10^3/uL (150-450); RED BLOOD COUNT 4.32 10^6/uL (3.72-5.28); RED CELL DISTRIBUTION WIDTH 13.5 % (11.5-14.0); SEGMENTED NEUTROPHILS % (AUTO) 68.1 % (42-78); TOTAL CELLS COUNTED % (AUTO) 100 %; WHITE BLOOD COUNT 5.7 10^3/uL (4.0-10.5)
[2019-06-13 12:44] LABS: ALKALINE PHOSPHATASE 69 U/L (38-126); ANION GAP 6 (5-19); ASPARTATE AMINO TRANSFERASE 18 U/L (14-36); BILIRUBIN,TOTAL 0.4 mg/dL (0.2-1.3); BLOOD UREA NITROGEN 15 mg/dL (7-20); CARBON DIOXIDE 27 mmol/L (22-30); CHLORIDE 105 mmol/L (98-107); GLUCOSE 102 mg/dL (75-110); POTASSIUM 3.8 mmol/L (3.6-5.0); TOTAL PROTEIN 7.4 g/dL (6.3-8.2)
--- NOTE | 2019-06-13 12:52 | RADIOLOGY REPORT (SQ) ---
EXAM DESCRIPTION: U/S ABDOMEN LIMITED W/O DOP IMAGES COMPLETED DATE/TIME: 06/13/2019 12:41 pm REASON FOR STUDY: Right flank/upper abdominal pain COMPARISON: None. TECHNIQUE: Dynamic and static grayscale images acquired of the abdomen and recorded on PACS. Additio ryder selected color Doppler and spectral images recorded. LIMITATIONS: None. FINDINGS: PANCREAS: No masses. Visualized pancreatic duct normal caliber. LIVER: No masses. Echotexture normal. LIVER VASCULATURE: Normal directional flow of the main portal vein and hepatic veins. GALLBLADDER: Contracted. Otherwise normal. ULTRASOUND-DETECTED LOPEZ'S SIGN: Negative. INTRAHEPATIC DUCTS AND COMMON DUCT: CBD and intrahepatic ducts normal caliber. No filling defects. INFERIOR VENA CAVA: Normal flow. AORTA: No aneurysm. RIGHT KIDNEY: Normal size. Normal echogenicity. No solid or suspicious masses. Small upper pole min imally septated cyst measuring 2 cm. Considered Bosniak 2. No hydronephrosis. No calcifications. PERITONEAL AND RIGHT PLEURAL SPACE: No ascites or effusions. OTHER: No other significant findings. IMPRESSION: No acute or suspicious right upper quadrant findings. As above. TECHNICAL DOCUMENTATION: JOB ID: [id number] 2010 [employer]- All Rights Reserved Reading location - IP/workstation name: [email or web address]
[2019-06-13] MEDS ORDERED: MORPHINE SULFATE 10 MG/ML INJ IV ONE (12:58)
[2019-06-13] MEDS ORDERED: ONDANSETRON HCL INJ/PF 4 MG/2 ML SDV IV ONE (12:58)
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
[2019-06-13 13:44] LABS: APPEARANCE,URINE SLIGHTLY-CLOUDY; BILIRUBIN,URINE NEGATIVE (NEGATIVE); COLOR,URINE AMBER; GLUCOSE, URINE NEGATIVE (NEGATIVE); KETONES,URINE NEGATIVE (NEGATIVE); PROTEIN,URINE NEGATIVE (NEGATIVE); URINE SPECIFIC GRAVITY 1.021; UROBILINOGEN,URINE NEGATIVE mg/dL (<2.0)
--- NOTE | 2019-06-13 14:43 | RADIOLOGY REPORT (SQ) ---
EXAM DESCRIPTION: CT ABD/PELVIS WITH IV ONLY IMAGES COMPLETED DATE/TIME: 06/13/2019 1:16 pm REASON FOR STUDY: fall, flank pain. Right flank/ upper abdominal pain. COMPARISON: None. TECHNIQUE: CT scan of the abdomen and pelvis performed using helical scanning technique with dynamic intravenous contrast injection. No oral contrast. Images reviewed with lung, soft tissue, and bone windows. Reconstructed coronal and sagittal MPR images reviewed. Delayed images for evaluation of the urinary system also acquired. All images stored on PACS. All CT scanners at this facility use dose modulation, iterative reconstruction, and/or weight based d osing when appropriate to reduce radiation dose to as low as reasonably achievable (ALARA). [facility]: Dose Right [facility]: CareDose [facility]: Dose Right [facility]: Teradose 4D [facility]: [employer] CONTRAST TYPE AND DOSE: 64 mL Omnipaque 350- low osmolar. RENAL FUNCTION: GFR > 60. RADIATION DOSE: CT Rad equipment meets quality standard of care and radiation dose reduction techniq ues were employed. CTDIvol: 4.8 - 5.2 mGy. DLP: 538 mGy-cm.. LIMITATIONS: None. FINDINGS: LOWER CHEST: Linear atelectasis at the left lung base. No focal consolidation. LIVER: Normal size. No masses. No dilated ducts. SPLEEN: Normal size. No focal lesions. PANCREAS: No masses. No significant calcifications. No adjacent inflammation or peripancreatic fluid collections. Pancreatic duct not dilated. GALLBLADDER: No identified stones by CT criteria. No inflammatory changes to suggest cholecystitis. ADRENAL GLANDS: No significant masses or asymmetry. RIGHT KIDNEY AND URETER: Right superior pole calyx diverticulum. Punctate nonobstructing calculus wi thin the calyx. No significant calcifications. No hydronephrosis or hydroureter. LEFT KIDNEY AND URETER: No solid masses. No significant calcifications. No hydronephrosis or hydr oureter. AORTA AND VESSELS: No aneurysm. No dissection. Renal arteries, SMA, celiac without stenosis. RETROPERITONEUM: No retroperitoneal adenopathy, hemorrhage or masses. BOWEL AND PERITONEAL CAVITY: No masses or inflammatory changes. No free fluid or peritoneal masses. APPENDIX: Normal. PELVIS: No mass. No free fluid. Normal bladder. ABDOMINAL WALL: No masses. No hernias. BONES: No significant or acute findings. OTHER: No other significant finding. IMPRESSION: No CT abnormality to explain the patient's right upper quadrant pain. TECHNICAL DOCUMENTATION: JOB ID: [id number] Quality ID # [id number]: Final reports with documentation of one or more dose reduction techniques (e.g., Au tomated exposure control, adjustment of the mA and/or kV according to patient size, use of iterative reconstruction technique) 2010 [employer]- All Rights Reserved Reading location - IP/workstation name: [email or web address]
[2019-06-13] MEDS ORDERED: CEFTRIAXONE 1 GM/D5W RTU 1 GM/50 ML RTUPB IV ONE (14:53)
[2019-06-13 15:58] VITALS: BP 116/70
== END 2019-06-13 16:13 | disposition home or self-care (01) ==
LOC: ER 11:30
DX: S39.91XA Unspecified injury of abdomen, initial encounter (principal); S29.9XXA Unspecified injury of thorax, initial encounter; R07.89 Other chest pain; W19.XXXA Unspecified fall, initial encounter; N39.0 Urinary tract infection, site not specified; R31.9 Hematuria, unspecified; F17.210 Nicotine dependence, cigarettes, uncomplicated
CPT/HCPCS: 99284; 96375; 96365; 36415; 87086; 83690; 84703; 85025; 87088; 80053; 81001; 87186; 76705; 74177; J2270; J2405; J0696